=== PATIENT | female | born 1990 | race Caucasian/White ===

== ENCOUNTER 2018-07-04 21:05 | Inpatient (IN) | payer OTHER ==
--- NOTE | 2018-07-04 21:46 | PN ---
L&D Outpatient: Visit - Reproductive Information Estimated Due Date: 07/04/18 Gestational Age: 40 Weeks and 0 Days : 2 Para: 1 - Reason for Visit Visit Reason: contractions - Antepartal Records Antepartal Record: Reviewed, Complicated by: - external cephalic version now vertex - Patient History Patient History Significant: Yes Patient History Significant For: Anxiety Review of Systems Constitutional: Comfortable CV Complaint: No Respiratory: Shortness of Breath: No Gastrointestinal: No Nausea/Vomiting Genitourinary: No Dysuria, No Bleeding, No Leaking Fluid Musculoskeletal: No Complaint Neurological: No Headache Movement: Normal L&D Outpatient: Exam - Cervical Exam Cervical Exam: /- posterior repeat cervical exam: /- posterior - Abdominal Exam Abdomen Exam: Non-Tender - Membranes Membrane Status: Intact - Ultrasound/Biophysical Profile Ultrasound Status: Bedside Exam Ultrasound Findings: vertex Biophysical Profile: Normal Amniotic Fluid, Normal Gross Body Movements, Normal Muscle Tone, Normal Reactive NST EFM Findings - External Monitor Findings External Monitor Findings: Accelerations Present, No Pattern of Variable or Late Decelerations, Variability Moderate Contractions: Mild - q 4-2' L&D Outpatient: Asses/Plan - Discharge Diagnosis Discharge Diagnosis: Supervision-Normal Preg Plan: Continue Observation - rechck cervical exam in 4 hours
[2018-07-04] MEDS ORDERED: Penicillin G Potassium IV* 5,000,000 UNITS in NS 0.9% 100 ML* 100 ML IVPB ONE (23:55)
--- NOTE | 2018-07-05 00:03 | HP ---
General Information - Reason for Visit Labor 40 0/7 weeks - General Information Maternal Age: 28 Grav: 2 Para: 1 SAB: 0 IEA: 0 Estimated Due Date: 07/04/18 Determined By: LMP Maternal Blood Type and Rh: O Positive - Results this Serology/RPR Result: Non-Reactive Rubella Result: Immune HBsAg Result: Negative HIV Result: Negative GBS Culture Result: Positive Past Medical History Delivery History: See Records Pertinent Past Medical History: See Records Pertinent Past Surgical History: See Records Pertinent Family History: See Records - Antepartal Records Antepartal Records: Reviewed, Complicated by: - breech/s/p successful external cephalic version Review of Systems Constitutional: Uncomfortable CV Complaint: No Respiratory: Shortness of Breath: No Gastrointestinal: No Nausea/Vomiting Genitourinary: No Dysuria, No Bleeding, No Leaking Fluid Musculoskeletal: Back Pain Neurological: No Headache Movement: Normal Exam Allergies/Adverse Reactions: Allergies No Known Allergies Allergy (Verified 07/04/18 21:33) T : 98.3 P : 94 R : 18 - Measurements Height: 5 ft Weight: 135 lb Weight in lbs: [phone] Body Mass Index (BMI): 26.4 Pre- Weight: 105 lb Weight Gained This : 30 lbs and 0 ozs - Exam Breast: Breast Exam Deferred CVA: No CVA Tenderness Extremities: No Edema Heart: Normal Rhythm/Heart Sounds HEENT: No Significant Findings Lungs: Clear Bilaterally Rectal: Rectal Exam Deferred Reflexes: DTR 2+ Thyroid: No Thyromegaly - Abdominal Exam Abdomen Exam: Non-Tender - Ultrasound/Biophysical Profile Ultrasound Status: Not Done Targeted Exam Findings Cervical Exam: 2cm Effacement: 90% Station: 0 Presenting Part: Vertex Membrane Status: Intact Bleeding/Discharge: None EFM Findings - External Monitor Findings External Monitor Findings: Accelerations Present, No Pattern of Variable or Late Decelerations, Variability Moderate Contractions: Mild - Q 3 ' Assessment/Plan - Assessment Pt 28 yo in active labor/ admit / begin IV F and consult anesthesia. - Obstetrical Risk Factors Obstetrical Risk Factors: GBS Positive - Plan Plan: Antibiotic Prophylaxis, Admit - Anticipate Vaginal Delivery
[2018-07-05] MEDS ORDERED: OBEPIDURAL* 0 ML EPIDURAL ONE (00:25)
[2018-07-05 00:31] LABS: ABS Basophils 0.1 10^3/ul (0-0.2); ABS Eosinophils 0.1 10^3/ul (0-0.6); ABS Lymphocytes 2.8 10^3/ul (1.0-4.8); ABS Monocytes 1.1 10^3/ul (0-0.8); ABS Neutrophils 10.3 10^3/ul (1.5-7.7); ABS Nucleated RBC 0 10^3/ul; Eosinophil % 0.5 % (0-6); Hematocrit 36 % (35-47); Hemoglobin 12.3 g/dl (12.0-16.0); Lymphocyte % 19.7 % (25-47); Mean Corpuscular HGB Conc 34 g/dl (31-36); Mean Corpuscular Hemoglobin 32 pg (27-31); Mean Corpuscular Volume 94 fL (80-97); Mean Platelet Volume 8.7 fL (7.4-10.4); Nucleated Red Blood Cells % 0; Platelet Count 188 10^3/ul (150-450); Red Blood Count 3.86 10^6/ul (4.00-5.40); Red Cell Distribution Width 13 % (10.5-15); White Blood Count 14.3 10^3/ul (3.5-10.8)
[2018-07-05] MEDS ORDERED: Oxytocin in LR* 20 UNITS/1,000 ML BAG IVPB ONE (00:43)
[2018-07-05] MEDS ORDERED: Acetaminophen TAB* 325 MG PO PRN (01:37)
[2018-07-05] MEDS ORDERED: Glycerin ADULT SUPP PR PRN (01:37)
[2018-07-05] MEDS ORDERED: Dibucaine 1% 28.35 GM TUBE PR PRN (01:37)
[2018-07-05] MEDS ORDERED: Witch Hazel PAD* JAR TOPICAL PRN (01:37)
--- NOTE | 2018-07-05 01:48 | PROCNOTE ---
[facility] OB: Delivery Note - Delivery A Date of : 07/05/18 Time of : 00:40 Sex: Male Score 1 Minute: 8 Score 5 Minutes: 9 Gestational Age in Weeks and Days at Delivery: 40 Weeks and 1 Days Delivery Method: Spontaneous Vaginal Labor: Spontaneous Amniotic Fluid: Clear Estimated Blood Loss: 300 Anesthesia/Analgesia: None Delivered By: Giselle Bliss - Nursery Level of Nursery: Regular/Bedside - Perineum Perineal Injury: 1st Degree Perineal Repair: By Delivering Practioner - 2.o vicryl after 30 cc 1% lidocaine - Events Delivery Events of Note: Pitocin Only After Delivery, Precipitous Delivery, Partial Course of Antibiotics - Additional Delivery Notes Additional Delivery Notes: nuchal cord X 1 reduced without difficulty placenta spontaneous /3VC/ intact
[2018-07-05] MEDS ORDERED: Oxytocin in LR* 20 UNITS/1,000 ML BAG IVPB SCH (02:00)
[2018-07-05] MEDS ORDERED: Ammonia Inhalant* 1 EA AMP ONE (03:17)
[2018-07-05] MEDS: Ibuprofen TAB* 600 MG PO PRN ×2 (04:18→14:43)
[2018-07-05] MEDS ORDERED: Penicillin G Potassium IV* 2,500,000 UNITS in NS 0.9% 100 ML* 100 ML IVPB SCH (04:30)
[2018-07-05] MEDS ORDERED: Simethicone TAB* 80 MG TAB.CHEW PO SCH (08:30)
[2018-07-05] MEDS: Docusate CAP* 100 MG PO SCH ×3 (14:25→20:25)
[2018-07-06] MEDS: Ibuprofen TAB* 600 MG PO PRN ×2 (02:09→08:45)
[2018-07-06 07:08] LABS: ABS Basophils 0 10^3/ul (0-0.2); ABS Eosinophils 0.1 10^3/ul (0-0.6); ABS Lymphocytes 2.7 10^3/ul (1.0-4.8); ABS Monocytes 0.7 10^3/ul (0-0.8); ABS Nucleated RBC 0 10^3/ul; Eosinophil % 1.5 % (0-6); Hematocrit 33 % (35-47); Hemoglobin 11.6 g/dl (12.0-16.0); Lymphocyte % 28.1 % (25-47); Mean Corpuscular HGB Conc 35 g/dl (31-36); Mean Corpuscular Hemoglobin 33 pg (27-31); Mean Corpuscular Volume 95 fL (80-97); Mean Platelet Volume 7.7 fL (7.4-10.4); Nucleated Red Blood Cells % 0.1; Platelet Count 161 10^3/ul (150-450); Red Blood Count 3.48 10^6/ul (4.00-5.40); Red Cell Distribution Width 13 % (10.5-15); White Blood Count 9.7 10^3/ul (3.5-10.8)
[2018-07-06] MEDS: Docusate CAP* 100 MG PO SCH ×3 (08:46→21:03)
[2018-07-06] MEDS: Ferrous Gluconate TAB* 324 MG TAB PO SCH (14:06)
[2018-07-07] MEDS: Ibuprofen TAB* 600 MG PO PRN (00:39)
[2018-07-07 08:02] VITALS: BP 107/77
[2018-07-07] MEDS: Docusate CAP* 100 MG PO SCH ×2 (09:17→14:39)
[2018-07-07] MEDS: Ferrous Gluconate TAB* 324 MG TAB PO SCH (09:32)
== END 2018-07-07 15:42 | disposition home or self-care (01) | DRG 807 ==
LOC: MCHOBOUT 21:05 → MCHOB 23:57
PROVIDERS: ADMIT Obstetrics & Gynecology; ATTEND Obstetrics & Gynecology
PROC: 0HQ9XZZ Repair Perineum Skin, External Approach (ICD-10-PCS; principal; 2018-07-04)
PROC: 10E0XZZ Delivery of Products of Conception, External Approach (ICD-10-PCS; 2018-07-04)
PROC: 4A1HX4Z Monitoring of Products of Conception, Cardiac Electrical Activity, External Approach (ICD-10-PCS; 2018-07-04)
PROC: 0T9B70Z Drainage of Bladder with Drainage Device, Via Natural or Artificial Opening (ICD-10-PCS; 2018-07-04)
DX: O62.3 Precipitate labor (principal); Z37.0 Single live birth; O99.824 Streptococcus B carrier state complicating childbirth; O48.0 Post-term pregnancy; O69.81X0 Labor and delivery complicated by cord around neck, without compression, not applicable or unspecified; Z3A.40 40 weeks gestation of pregnancy; N32.89 Other specified disorders of bladder; O70.0 First degree perineal laceration during delivery; O75.89 Other specified complications of labor and delivery
CPT/HCPCS: 36415; 85025; 86850; 86900; 86901; A9270-GY; J2540